=== PATIENT | male | born 1970 ===

== ENCOUNTER 2017-02-01 07:26 | Observation (INO) | payer SELFPAY ==
[2017-02-01 07:30] VITALS: BMI 45.0
[2017-02-01] MEDS ORDERED: Tetanus/Diphtheria Toxoids 0.5 ml Syringe IM ONE ×2 (07:55→08:03)
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
[2017-02-01] MEDS ORDERED: Lidocaine 1% Inj (20ml) INFIL STA (09:36)
[2017-02-01] MEDS ORDERED: Lidocaine 1% Inj (20ml) ONE (09:40)
[2017-02-01] MEDS ORDERED: Amoxicillin-Clav 500-125 mg Tab PO ONE (10:17)
[2017-02-01 10:41] VITALS: BP 144/70; PULSE 90; RESP 16; TEMP 98.2
[2017-02-01 12:20] VITALS: O2SAT 97
[2017-02-03] MEDS ORDERED: Lidocaine 2% Inj (20ml) ONE (12:16)
== END 2017-02-01 10:38 | disposition home or self-care (01) ==
LOC: EDBD → C.ER 07:26 → C.9OBSV 07:45 → MERGE 07:45
PROVIDERS: ADMIT Emergency Medicine; ATTEND Emergency Medicine
DX: S01.511A Laceration without foreign body of lip, initial encounter (principal); Y04.2XXA Assault by strike against or bumped into by another person, initial encounter; S00.03XA Contusion of scalp, initial encounter; S00.12XA Contusion of left eyelid and periocular area, initial encounter; S05.12XA Contusion of eyeball and orbital tissues, left eye, initial encounter; Z72.89 Other problems related to lifestyle
CPT/HCPCS: 12013; 70450; 70486; 82948; 90471; 90714; 99285; G0378

== ENCOUNTER 2017-02-07 16:34 | Emergency (ER) | payer SELFPAY ==
[2017-02-07 16:34] VITALS: BMI 45.0
--- NOTE | 2017-02-07 17:08 | C.PDOC ---
History Of Present Illness 45 yr old male presents to the ER for suture removal for a lip laceration, Patient states he also has been having occasional pain to the right periorbital area. Patient denies redness or discharge from the suture site. Denies fever, vision changes, nausea, vomiting, weakness or numbness. 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 Constitutional: Negative for: Fever Eyes: Negative for: Vision Change Gastrointestinal: Negative for: Nausea, Vomiting Neurological: Positive for: Other (Pain to the right periorbital side). Negative for: Weakness, Numbness Physical Exam - Physical Exam Appears: Well, Non-toxic, No Acute Distress Skin: Warm, Dry, No Rash Head: Atraumatic, Normacephalic Eye(s): bilateral: PERRL, EOMI, right: Other (Periorbital ecchymosis to the right eye. ) Oral Mucosa: Moist Lips: No Swelling, Other (2 sutures intatct, with surrounding scabbing. No surrounding erythema. No discharge. ) Neck: Normal, Normal ROM, Supple Chest: Symmetrical, No Tenderness Cardiovascular: Rhythm Regular, No Murmur Respiratory: Normal Breath Sounds, No Rales, No Rhonchi, No Stridor, No Wheezing Extremity: Normal ROM, No Swelling Neurological/Psych: Oriented x3, Normal Speech, Normal Motor ED Course And Treatment Progress Note: Sutures were removed cleanly. Wound care was discussed with the patient and advised to follow up with PMD for further check up. Previous chart and imaging results reviewed. Instructed strict follow up and to return if symptoms persist or worsen. Case doisucssed with Dr Mullen, agreed upon plan and discharge. Disposition - Disposition Referrals: [facility] [Outside] Disposition: HOME/ ROUTINE Disposition Time: 17:06 Condition: STABLE Additional Instructions: Follow up with your primary medical doctor or clinic in 2-5 days for further evaluation. Return to the emergency department at any time if symptoms persist or worsen. 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 - Scribe Statement The provider has reviewed the documentation as recorded by the Scribe Paulina Flores All medical record entries made by the Scribe were at my direction and personally dictated by me. I have reviewed the chart and agree that the record accurately reflects my personal performance of the history, physical exam, medical decision making, and the department course for this patient. I have also personally directed, reviewed, and agree with the discharge instructions and disposition.
== END 2017-02-07 17:17 | disposition home or self-care (01) ==
LOC: EDBD → MERGE 16:34 → C.ER 16:34
DX: Z48.02 Encounter for removal of sutures (principal)